=== PATIENT | male | born 1955 | race Caucasian/White ===

== ENCOUNTER 2024-06-26 23:50 | Emergency (ER) | payer MEDICARE, MEDICAID ==
[~2024-06-26] VITALS: Ht 175.3 cm; Wt 87.0 kg
[2024-06-26 23:52] VITALS: O2SAT 99
[2024-06-27] MEDS ORDERED: TETANUS, DIPHTHERIA, PERTUSSIS VAC/PF 0.5ML (>10YR OLD) IM ONE (01:15)
[2024-06-27] MEDS ORDERED: LIDOCAINE HCL 1% 20ML VIAL INFIL ONE (01:15)
[2024-06-27] MEDS ORDERED: LIDOCAINE HCL 1% 20ML VIAL INFIL NR (03:30)
[2024-06-27] MEDS: TETANUS, DIPHTHERIA, PERTUSSIS VAC/PF 0.5ML (>10YR OLD) IM ONE (03:31)
[2024-06-27] MEDS ORDERED: ACET-2708 MT (04:26)
[2024-06-27 05:14] VITALS: BP 126/89; PULSE 100; RESP 18; TEMP 37.05852; O2SAT 96
== END 2024-06-27 05:15 | disposition home or self-care (01) ==
LOC: ER 23:50
DX: S01.01XA Laceration without foreign body of scalp, initial encounter (principal); G31.89 Other specified degenerative diseases of nervous system; W19.XXXA Unspecified fall, initial encounter; Y93.89 Activity, other specified; Y92.89 Other specified places as the place of occurrence of the external cause; Y99.8 Other external cause status
CPT/HCPCS: 99285; 12004; 70450; 90715; 90471; J3490